=== PATIENT | female | born 1990 | race African-American/Black ===

== ENCOUNTER 2016-10-03 12:27 | Emergency (ER) | payer MEDICAID ==
[~2016-10-03] VITALS: Ht 165.1 cm; Wt 72.6 kg
[2016-10-03] MEDS ORDERED: Ketorolac 30mg Inj IV ONE (12:45)
[2016-10-03] MEDS ORDERED: Meclizine 25mg tab ORAL ONE (12:45)
--- NOTE | 2016-10-03 12:49 | Emergency Room Report ---
History of Present Illness General Chief Complaint: General Complaint Source: Patient, EMS Present Illness HPI Patient presents with complaints of vertigo, dizziness and nausea with associated diarrhea. This started approximately 8 AM this morning and persisted with significant vertigo, 4 episodes of watery diarrhea, some abdominal cramping and nausea without vomiting. She has a history of migraines as well as vertigo. She is generally cared for by [facility]. She called an ambulance when she felt very dizzy during the diarrheal episodes. And was brought her to the hospital without any difficulties in with stable vitals. Patient denies . Patient states that moving her head causes vertigo to increase and worsen, worse with movement of her head to the right. She denies drugs and/or alcohol use. She is a single mother with 3 children who accompanied her to the emergency department. She also has a history of migraines for which she takes amitriptyline, Toradol, and a history of vertigo for which he takes meclizine. She tried taking meclizine once this morning but states it did not improve her symptoms significantly. Also has a history of some urinary tract infections but denies dysuria or frequency at this time. Allergies: Coded Allergies: MEPERIDINE (Unverified Allergy, Unknown, 10/03/16) Patient History Past Medical History: see triage record Past Surgical History: none Pertinent Family History: none Social History: Denies: alcohol use, drug use, smoking Now: No Immunizations: UTD Reviewed Nursing Documentation: PMH: Agreed Nursing Documentation-[facility] Past Medical History: No History, Except For Hx Neurological Problems: No - MYGARINE Review of Systems Gastrointestinal: Reports: diarrhea, nausea, Denies: constipation, hematemesis , vomiting Neurological: Reports: dizziness, headache All Other Systems: negative except mentioned in HPI Physical Exam Vital Signs Date Time Temp Pulse Resp B/P Pulse Ox O2 Delivery O2 Flow Rate FiO2 10/03/16 12:21 98.6 69 20 107/65 100 Room Air Sp02 EP Interpretation: reviewed, normal General Appearance: alert, non-toxic, mild distress, other - appears somewhat overwhelmed, tired Head: atraumatic Eyes: bilateral eye normal inspection ENT: normal ENT inspection, hearing grossly normal, normal voice Neck: normal inspection, full range of motion, supple, no bony tend Respiratory: normal inspection, lungs clear, normal breath sounds, no respiratory distress, no retraction, no wheezing Cardiovascular #1: regular rate, rhythm, no edema Gastrointestinal: normal inspection, normal bowel sounds, non tender, soft, no guarding, no hernia Genitourinary: no CVA tenderness Musculoskeletal: normal inspection, back normal, normal range of motion Neurologic: alert, oriented x3, responsive, speech normal, nystagmus - with movement of the head to the right Psychiatric: normal inspection, judgement/insight normal, mood/affect normal Skin: normal inspection, normal color, no rash Medical Decision Making Diagnostic Impression: Primary Impression: Vertigo Additional Impressions: Dizziness Headache Diarrhea Nausea ER Course 26-year-old female with a history of migraines, vertigo presenting with dizziness, vertigo and diarrhea for which she did not find relief with meclizine. Her exam is somewhat suggestive of a vertiginous attack. No abdominal discomfort, no breathing difficulties or recent sick contacts from the children or others. We'll start with IV fluids, blood tests, urinalysis, test as well as meclizine, Toradol and Compazine for her migraine. Based on response to treatment should be able to determine final disposition. after initial treatment the patient appears quite well. She's been in today without difficulty, she received fluids, pain medication as well as antiemetic. Patient's labs initially appear well to me though there are still some pending. He'll be signed out to my oncoming physician , for final review prior to discharge. At this time I believe her primary diagnosis would be dizziness, vertigo with may be a viral diarrhea component. final read for urinalysis pending to be signed out to oncoming doctor Laboratory Tests Test 10/03/16 13:20 10/03/16 13:50 Sodium Level 136 mEQ/L (135-145) Potassium Level 3.9 mEQ/L (3.4-4.9) Chloride Level 98 mEQ/L (98-107) Carbon Dioxide Level 24 mEQ/L (20-30) Anion Gap 14 (5-15) Blood Urea Nitrogen 6 mg/dL (7-23) L Creatinine 0.7 mg/dL (0.5-0.9) Estimat Glomerular Filtration Rate > 60 mL/min (>60) Glucose Level 89 mg/dL (74-106) Calcium Level 9.5 mg/dL (8.6-10.2) White Blood Count 7.3 K/UL (4.8-10.8) Red Blood Count 4.88 M/UL (4.20-5.40) Hemoglobin 10.1 G/DL (12.0-16.0) L Hematocrit 33.8 % (37.0-47.0) L Mean Corpuscular Volume 69 FL (80-99) L Mean Corpuscular Hemoglobin 20.6 PG (27.0-31.0) L Mean Corpuscular Hemoglobin Concent 29.8 G/DL (32.0-36.0) L Red Cell Distribution Width 16.9 % (11.6-14.8) H Platelet Count 271 K/UL (150-450) Mean Platelet Volume 9.0 FL (6.5-10.1) Neutrophils (%) (Auto) 63.7 % (45.0-75.0) Lymphocytes (%) (Auto) 27.5 % (20.0-45.0) Monocytes (%) (Auto) 6.9 % (1.0-10.0) Eosinophils (%) (Auto) 1.0 % (0.0-3.0) Basophils (%) (Auto) 0.9 % (0.0-2.0) Urine Color Pale yellow Urine Appearance Clear Urine pH 6.5 (4.5-8.0) Urine Specific [place] 1.010 (1.005-1.035) Urine Protein Negative (NEGATIVE) Urine Glucose (UA) Negative (NEGATIVE) Urine Ketones Negative (NEGATIVE) Urine Occult Blood Negative (NEGATIVE) Urine Nitrite Negative (NEGATIVE) Urine Bilirubin Negative (NEGATIVE) Urine Urobilinogen Normal MG/DL (0.0-1.0) Urine Leukocyte Esterase 2+ (NEGATIVE) H Urine RBC Pending Urine WBC Pending Urine Squamous Epithelial Cells Pending Urine Bacteria Pending Urine HCG, Qualitative Pending Reevaluation Time: 14:24 Last Vital Signs Date Time Temp Pulse Resp B/P Pulse Ox O2 Delivery O2 Flow Rate FiO2 10/03/16 12:21 98.6 69 20 107/65 100 Room Air Status: improved Disposition: HOME, SELF-CARE Condition: Improved Scripts Ondansetron (Zofran) 4 Mg Tablet 4 MG ORAL Q6H Y for Nausea & Vomiting, #30 TAB 0 Refills Prov: Israel Arechiga MD 10/03/16 [facility] constantino MD Oct 03, 2016 12:49
[2016-10-03 13:41] VITALS: BP 107/65
[2016-10-03 14:05] LABS: ANION GAP 14 (5-15); CALCIUM 9.5 mg/dL (8.6-10.2); CARBON DIOXIDE 24 mEQ/L (20-30); CHLORIDE 98 mEQ/L (98-107); CREATININE 0.7 mg/dL (0.5-0.9); GLOMERULAR FILTRATION RATE > 60 mL/min (>60); HEMOLYSIS 11; POTASSIUM 3.9 mEQ/L (3.4-4.9); SODIUM 136 mEQ/L (135-145)
[2016-10-03 14:12] LABS: APPEARANCE,URINE CLEAR; KETONES,URINE NEGATIVE (NEGATIVE); LEUKOCYTE ESTERASE ,URINE 2+ (NEGATIVE); NITRITE,URINE NEGATIVE (NEGATIVE); PH,URINE 6.5 (4.5-8.0); PROTEIN,URINE NEGATIVE (NEGATIVE); UROBILINOGEN,URINE NORMAL MG/DL (0.0-1.0)
[2016-10-03] MEDS ORDERED: ZOFRAN4 MG ORAL (14:12)
[2016-10-03 14:14] LABS: BASOPHILS % (AUTO) 0.9 % (0.0-2.0); LYMPHOCYTES % (AUTO) 27.5 % (20.0-45.0); MEAN CORPUSCULAR HEMOGLOBIN 20.6 PG (27.0-31.0); MEAN CORPUSCULAR HGB CONC 29.8 G/DL (32.0-36.0); MEAN CORPUSCULAR VOLUME 69 FL (80-99); MONOCYTES % (AUTO) 6.9 % (1.0-10.0); NEUTROPHILS % (AUTO) 63.7 % (45.0-75.0); PLATELET COUNT 271 K/UL (150-450); RED BLOOD COUNT 4.88 M/UL (4.20-5.40); RED CELL DISTRIBUTION WIDTH 16.9 % (11.6-14.8); WHITE BLOOD COUNT 7.3 K/UL (4.8-10.8)
[2016-10-03 14:26] LABS: BACTERIA,URINE OCCASIONAL /HPF; RBC,URINE 0-2 /HPF (0 - 2); SQUAMOUS EPITHELIAL CELL,UR FEW /LPF (NONE/OCC)
[2016-10-03 15:24] VITALS: BP 121/46
== END 2016-10-03 14:30 | disposition home or self-care (01) ==
LOC: EDBD 12:27 → EMR 12:53
DX: R42 Dizziness and giddiness (principal); R51 Headache; R11.0 Nausea; R19.7 Diarrhea, unspecified; Z88.5 Allergy status to narcotic agent
CPT/HCPCS: 36415; 80048; 81003; 81025; 85025; 96374; 96375; 99284; J0780; J1885; J2405

== ENCOUNTER 2018-05-31 12:15 | Inpatient (IN) | payer MEDICAID ==
[~2018-05-31] VITALS: Ht 165.1 cm; Wt 68.0 kg
[~2018-05-31 12:15] MED LIST: ZOFRAN4 MG ORAL
[2018-05-31 12:33] VITALS: BP 123/88
[2018-05-31 14:08] LABS: BASOPHILS % (AUTO) 0.9 % (0.0-2.0); EOSINOPHILS % (AUTO) 0.8 % (0.0-3.0); HEMATOCRIT 39.9 % (37.0-47.0); LYMPHOCYTES % (AUTO) 20.7 % (20.0-45.0); MEAN CORPUSCULAR VOLUME 73 FL (80-99); NEUTROPHILS % (AUTO) 71.6 % (45.0-75.0); PLATELET COUNT 262 K/UL (150-450); RED CELL DISTRIBUTION WIDTH 13.1 % (11.6-14.8); WHITE BLOOD COUNT 7.9 K/UL (4.8-10.8)
[2018-05-31 14:09] LABS: APPEARANCE,URINE SLIGHTLY CLOUDY; BILIRUBIN, URINE NEGATIVE (NEGATIVE); COLOR,URINE PALE YELLOW; GLUCOSE, URINE (UA) NEGATIVE (NEGATIVE); KETONES,URINE NEGATIVE (NEGATIVE); LEUKOCYTE ESTERASE ,URINE 3+ (NEGATIVE); NITRITE,URINE NEGATIVE (NEGATIVE); PH,URINE 7 (4.5-8.0); PROTEIN,URINE NEGATIVE (NEGATIVE); UROBILINOGEN,URINE NORMAL MG/DL (0.0-1.0)
[2018-05-31 14:27] LABS: ANION GAP 11 mmol/L (5-15); BLOOD UREA NITROGEN 10 mg/dL (7-18); CALCIUM 9.2 MG/DL (8.5-10.1); CARBON DIOXIDE 22 MMOL/L (21-32); CHLORIDE 103 MMOL/L (98-107); CREATININE 0.7 MG/DL (0.55-1.30); POTASSIUM 3.7 MMOL/L (3.5-5.1); SODIUM 136 MMOL/L (136-145)
[2018-05-31 14:32] VITALS: BP 107/59
[2018-05-31 14:34] LABS: ALANINE AMINOTRANSFERASE 22 U/L (12-78); ALBUMIN 3.8 G/DL (3.4-5.0); ALBUMIN/GLOBULIN RATIO 0.9 (1.0-2.7); ALKALINE PHOSPHATASE 86 U/L (46-116); ASPARTATE AMINO TRANSFERASE 21 U/L (15-37); BILIRUBIN,TOTAL 0.4 MG/DL (0.2-1.0)
[2018-05-31 16:28] VITALS: BP 121/62
--- NOTE | 2018-05-31 16:58 | Diagnostic Imaging Report ---
Indication: Dizziness and vertigo x6 months along with headache Technique: sagittal T1 fast spin echo, axial T1 FLAIR, axial T2 FLAIR, axial T2 FS PROPELLER, axial T2* GRE, axial diffusion weighted images. ADC and exponential ADC maps generated Comparison: none Findings: No abnormal areas of restricted diffusion to suggest acute infarction. No acute hemorrhage or edema. No mass effect nor midline shift. Normal size ventricles and extra axial CSF spaces. Visualized orbits and sinuses are unremarkable. The vascular flow voids are preserved Impression: Negative
[2018-05-31 18:27] VITALS: BP 140/48
--- NOTE | 2018-05-31 19:05 | Emergency Room Report ---
History of Present Illness General Chief Complaint: Dizziness Source: Patient Present Illness HPI 28 YO Female presents to the ED c/o acute worsening of her neurological symptoms. having on-going dizziness that x 4 months. pt. reports began 2 days after receiving chiropractic adjustments in her neck for tx of migraines. pt. reports frequent episodes of dizziness when standing/walking. pt. has had CT imaging done in ED ( [facility]) which was normal. pt. reports that today while driving in car she had acute onset of severe symptoms which are different than what she has had in the past. Pt reported 10/10 in severity dizziness and PHAM. pt. reports palpitations, denies CP, reports Left sided posterior PHAM that radiates down the left side of the neck. pt. denies vertigo denies sensation of the room spinning. denies visual changes. pt. denies recent head trauma. reports She has been rx'd meclizine and Ativan previously with no effect on her symptoms. Denies . Denies cardias hx. reports family hx of heart problems. Pt. describes being so dizzy at home she has been using a walker. Denies weakness. Allergies: Coded Allergies: MEPERIDINE (Unverified Allergy, Unknown, 10/03/16) Patient History Past Medical History: see triage record Past Surgical History: none Last Menstrual Period: April, Now: No Reviewed Nursing Documentation: PMH: Agreed; PSxH: Agreed Nursing Documentation-PM[facility] Past Medical History: No History, Except For Hx Neurological Problems: No - MYGARINE Review of Systems All Other Systems: negative except mentioned in HPI Physical Exam Vital Signs Date Time Temp Pulse Resp B/P (MAP) Pulse Ox O2 Delivery O2 Flow Rate FiO2 05/31/18 12:22 98.1 89 18 123/88 100 Room Air 98.1 Sp02 EP Interpretation: reviewed, normal General Appearance: alert, GCS 15, non-toxic, mild distress Head: normocephalic, atraumatic Eyes: bilateral eye normal inspection, bilateral eye PERRL ENT: hearing grossly normal, normal voice Neck: full range of motion, no meningismus, no bony tend Respiratory: chest non-tender, lungs clear, normal breath sounds, speaking full sentences Cardiovascular #1: regular rate, rhythm Musculoskeletal: back normal, normal range of motion, non-tender Neurologic: alert, oriented x3, responsive, motor strength/tone normal, sensory intact, speech normal, other - pt. has unsteady gait. no nystagmus, symptoms illicited with head turned to the right past 80*. , grossly normal Psychiatric: judgement/insight normal Skin: normal color, no rash, warm/dry, well hydrated Medical Decision Making PA Attestation Dr. kelly is my supervising Physician whom patient management has been discussed with. Diagnostic Impression: Primary Impression: Dizziness of unknown cause Additional Impressions: Unsteady gait Headache Qualified Codes: R51 - Headache ER Course 28 YO Female presents to the ED c/o acute worsening of her neurological symptoms. having on-going dizziness x 4 months. pt. reports began 2 days after receiving chiropractic adjustments in her neck for tx of migraines. pt. reports frequent episodes of dizziness when standing/walking. pt. has had CT imaging done in ED ( [facility]) which was normal. pt. reports that today while driving in car she had acute onset of severe symptoms which are different than what she has had in the past. pt. reports palpitations, denies CP, reports Left sided posterior PHAM that radiates down the left side of the neck. pt. denies vertigo denies sensation of the room spinning. denies visual changes. pt. denies recent head trauma. reports She has been rx'd meclizine and Ativan previously with no effect on her symptoms. Denies . Denies cardias hx. reports family hx of heart problems. Pt. describes being so dizzy at home she has been using a walker. Denies weakness. Ddx considered but are not limited to Mnire's, BPPV, labrinitis, cerebellar stroke, hypovolemia, cardiac cause. Vital signs: are WNL, pt. is afebrile H&PE are most consistent with : Dizziness and unsteady gait. ORDERS - Ortho static VS: minimally positive HR increased by exactly 10 bpms -CT head no contrast- negative for ICH, EDEMA, or mass -CMP: unremarkable -UA: Most consistent with contamination -Urine Hcg: Negative - EK BPM NSR no acute ST changes, reviewed by Dr. Rowell ED INTERVENTIONS: - IV Fluids 1000cc NS - Fioricet DISPOSITION: at this time pt. will be admitted to Dr. Celaya for persistent dizziness and unsteady gait. Dr. Celaya agreed to admit the pt. and to continue pt. care management. Labs Test 05/31/18 13:06 05/31/18 13:35 Urine Opiates Screen Negative (NEGATIVE) Urine Barbiturates Screen Negative (NEGATIVE) Phencyclidine (PCP) Screen Negative (NEGATIVE) Urine Amphetamines Screen Negative (NEGATIVE) Urine Benzodiazepines Screen Negative (NEGATIVE) Urine Cocaine Screen Negative (NEGATIVE) Urine Marijuana (THC) Screen Negative (NEGATIVE) White Blood Count 7.9 K/UL (4.8-10.8) Red Blood Count 5.50 M/UL (4.20-5.40) Hemoglobin 12.0 G/DL (12.0-16.0) Hematocrit 39.9 % (37.0-47.0) Mean Corpuscular Volume 73 FL (80-99) Mean Corpuscular Hemoglobin 21.8 PG (27.0-31.0) Mean Corpuscular Hemoglobin Concent 30.1 G/DL (32.0-36.0) Red Cell Distribution Width 13.1 % (11.6-14.8) Platelet Count 262 K/UL (150-450) Mean Platelet Volume 9.3 FL (6.5-10.1) Neutrophils (%) (Auto) 71.6 % (45.0-75.0) Lymphocytes (%) (Auto) 20.7 % (20.0-45.0) Monocytes (%) (Auto) 6.0 % (1.0-10.0) Eosinophils (%) (Auto) 0.8 % (0.0-3.0) Basophils (%) (Auto) 0.9 % (0.0-2.0) Urine Color Pale yellow Urine Appearance Slightly cloudy Urine pH 7 (4.5-8.0) Urine Specific [place] 1.015 (1.005-1.035) Urine Protein Negative (NEGATIVE) Urine Glucose (UA) Negative (NEGATIVE) Urine Ketones Negative (NEGATIVE) Urine Blood Negative (NEGATIVE) Urine Nitrite Negative (NEGATIVE) Urine Bilirubin Negative (NEGATIVE) Urine Urobilinogen Normal MG/DL (0.0-1.0) Urine Leukocyte Esterase 3+ (NEGATIVE) Urine RBC 0-2 /HPF (0 - 2) Urine WBC 5-10 /HPF (0 - 2) Urine Squamous Epithelial Cells Moderate /LPF (NONE/OCC) Urine Bacteria Few /HPF (NONE) Urine HCG, Qualitative Negative (NEGATIVE) Sodium Level 136 MMOL/L (136-145) Potassium Level 3.7 MMOL/L (3.5-5.1) Chloride Level 103 MMOL/L (98-107) Carbon Dioxide Level 22 MMOL/L (21-32) Anion Gap 11 mmol/L (5-15) Blood Urea Nitrogen 10 mg/dL (7-18) Creatinine 0.7 MG/DL (0.55-1.30) Estimat Glomerular Filtration Rate > 60 mL/min (>60) Glucose Level 76 MG/DL (74-106) Calcium Level 9.2 MG/DL (8.5-10.1) Total Bilirubin 0.4 MG/DL (0.2-1.0) Aspartate Amino Transf (AST/SGOT) 21 U/L (15-37) Alanine Aminotransferase (ALT/SGPT) 22 U/L (12-78) Alkaline Phosphatase 86 U/L (46-116) Total Protein 8.2 G/DL (6.4-8.2) Albumin 3.8 G/DL (3.4-5.0) Globulin 4.4 g/dL Albumin/Globulin Ratio 0.9 (1.0-2.7) EKG Diagnostic Results EP Interpretation: Dr. Rowell Rate: normal - 75 bpm Rhythm: NSR ST Segments: no acute changes ASA given to the pt in ED: No PA Scribe Text This Interpretation was scribed by FELICE Butterfield. Last Vital Signs Date Time Temp Pulse Resp B/P (MAP) Pulse Ox O2 Delivery O2 Flow Rate FiO2 05/31/18 18:30 98.5 05/31/18 18:27 72 19 140/48 95 Room Air Disposition: ADMITTED INPATIENT Condition: Serious Referrals: [facility],REFERRING (PCP) Yasmin Butterfield May 31, 2018 19:05
[2018-05-31] MEDS ORDERED: LORazepam Inj 2mg/ml 1ml IV PRN (20:30)
[2018-05-31] MEDS ORDERED: Mylanta II UD 30ml ORAL PRN (20:30)
[2018-05-31] MEDS ORDERED: Morphine Sulfate 2mg/ml Inj IVP PRN (20:30)
[2018-05-31] MEDS ORDERED: Miralax 17gm pkt ORAL PRN (20:30)
[2018-05-31] MEDS ORDERED: Zolpidem 5mg tab ORAL PRN (20:30)
[2018-05-31 21:05] VITALS: BP 107/62
[2018-05-31 23:50] VITALS: BP 131/56
[2018-06-01 04:00] VITALS: BP 100/56
[2018-06-01] MEDS ORDERED: Meclizine 25mg tab ORAL PRN (05:00)
[2018-06-01] MEDS: Meclizine 25mg tab ORAL PRN (05:20)
[2018-06-01 07:19] LABS: BASOPHILS % (AUTO) 0.7 % (0.0-2.0); EOSINOPHILS % (AUTO) 1.3 % (0.0-3.0); HEMATOCRIT 36.4 % (37.0-47.0); HEMOGLOBIN 11.5 G/DL (12.0-16.0); LYMPHOCYTES % (AUTO) 32.5 % (20.0-45.0); MEAN CORPUSCULAR VOLUME 73 FL (80-99); MONOCYTES % (AUTO) 7.3 % (1.0-10.0); NEUTROPHILS % (AUTO) 58.2 % (45.0-75.0); PLATELET COUNT 254 K/UL (150-450); RED BLOOD COUNT 5.01 M/UL (4.20-5.40); RED CELL DISTRIBUTION WIDTH 13.3 % (11.6-14.8); WHITE BLOOD COUNT 5.5 K/UL (4.8-10.8)
[2018-06-01 07:49] LABS: ALANINE AMINOTRANSFERASE 22 U/L (12-78); ALBUMIN 3.3 G/DL (3.4-5.0); ALBUMIN/GLOBULIN RATIO 0.8 (1.0-2.7); ALKALINE PHOSPHATASE 80 U/L (46-116); ASPARTATE AMINO TRANSFERASE 16 U/L (15-37); BILIRUBIN,TOTAL 0.3 MG/DL (0.2-1.0); BLOOD UREA NITROGEN 9 mg/dL (7-18); CALCIUM 8.8 MG/DL (8.5-10.1); CHLORIDE 105 MMOL/L (98-107); CHOLESTEROL 194 MG/DL (< 200); CREATININE 0.8 MG/DL (0.55-1.30); HDL CHOLESTEROL 37 MG/DL (40-60); POTASSIUM 4.1 MMOL/L (3.5-5.1); SODIUM 139 MMOL/L (136-145); TRIGLYCERIDES 71 MG/DL (30-150)
[2018-06-01 08:00] VITALS: BP 112/65
[2018-06-01 10:01] LABS: ANION GAP 11 mmol/L (5-15); CARBON DIOXIDE 23 MMOL/L (21-32)
--- NOTE | 2018-06-01 11:00 | Cardiac Electrophysiology PN ---
Subjective Subjective [id number] Objective Last 24 Hour Vital Signs Date Time Temp Pulse Resp B/P (MAP) Pulse Ox O2 Delivery O2 Flow Rate FiO2 06/01/18 09:00 Room Air 06/01/18 08:00 97.7 73 18 112/65 (81) 96 97.7 06/01/18 04:00 97.7 66 18 100/56 (71) 96 97.7 05/31/18 23:50 97.9 61 18 131/56 (81) 96 97.9 05/31/18 21:38 Room Air 05/31/18 21:05 98.0 65 19 107/62 95 Room Air 98.0 05/31/18 21:05 36.98975 65 19 107/62 95 Room Air 208.4 05/31/18 19:00 98.5 05/31/18 18:30 98.5 05/31/18 18:27 98.5 72 19 140/48 95 Room Air 98.5 05/31/18 16:28 98.5 81 19 121/62 98 Room Air 98.5 05/31/18 14:32 98.5 76 19 107/59 100 Room Air 98.5 05/31/18 14:32 98.1 76 20 107/59 100 Room Air 98.1 05/31/18 12:33 98.1 89 18 123/88 100 Room Air 98.1 05/31/18 12:22 98.1 89 18 123/88 100 Room Air 98.1 Intake and Output 05/31/18 06/01/18 19:00 07:00 Intake Total 1000 ml 300 ml Balance 1000 ml 300 ml Intake Oral 300 ml IV Total 1000 ml # Voids 1 1 Laboratory Tests Test 05/31/18 13:06 05/31/18 13:35 06/01/18 06:10 Urine Opiates Screen Negative (NEGATIVE) Urine Barbiturates Screen Negative (NEGATIVE) Phencyclidine (PCP) Screen Negative (NEGATIVE) Urine Amphetamines Screen Negative (NEGATIVE) Urine Benzodiazepines Screen Negative (NEGATIVE) Urine Cocaine Screen Negative (NEGATIVE) Urine Marijuana (THC) Screen Negative (NEGATIVE) White Blood Count 7.9 K/UL (4.8-10.8) 5.5 K/UL (4.8-10.8) Red Blood Count 5.50 M/UL (4.20-5.40) H 5.01 M/UL (4.20-5.40) Hemoglobin 12.0 G/DL (12.0-16.0) 11.5 G/DL (12.0-16.0) L Hematocrit 39.9 % (37.0-47.0) 36.4 % (37.0-47.0) L Mean Corpuscular Volume 73 FL (80-99) L 73 FL (80-99) L Mean Corpuscular Hemoglobin 21.8 PG (27.0-31.0) L 22.9 PG (27.0-31.0) L Mean Corpuscular Hemoglobin Concent 30.1 G/DL (32.0-36.0) L 31.5 G/DL (32.0-36.0) L Red Cell Distribution Width 13.1 % (11.6-14.8) 13.3 % (11.6-14.8) Platelet Count 262 K/UL (150-450) 254 K/UL (150-450) Mean Platelet Volume 9.3 FL (6.5-10.1) 9.2 FL (6.5-10.1) Neutrophils (%) (Auto) 71.6 % (45.0-75.0) 58.2 % (45.0-75.0) Lymphocytes (%) (Auto) 20.7 % (20.0-45.0) 32.5 % (20.0-45.0) Monocytes (%) (Auto) 6.0 % (1.0-10.0) 7.3 % (1.0-10.0) Eosinophils (%) (Auto) 0.8 % (0.0-3.0) 1.3 % (0.0-3.0) Basophils (%) (Auto) 0.9 % (0.0-2.0) 0.7 % (0.0-2.0) Urine Color Pale yellow Urine Appearance Slightly cloudy Urine pH 7 (4.5-8.0) Urine Specific [place] 1.015 (1.005-1.035) Urine Protein Negative (NEGATIVE) Urine Glucose (UA) Negative (NEGATIVE) Urine Ketones Negative (NEGATIVE) Urine Blood Negative (NEGATIVE) Urine Nitrite Negative (NEGATIVE) Urine Bilirubin Negative (NEGATIVE) Urine Urobilinogen Normal MG/DL (0.0-1.0) Urine Leukocyte Esterase 3+ (NEGATIVE) H Urine RBC 0-2 /HPF (0 - 2) Urine WBC 5-10 /HPF (0 - 2) H Urine Squamous Epithelial Cells Moderate /LPF (NONE/OCC) H Urine Bacteria Few /HPF (NONE) Urine HCG, Qualitative Negative (NEGATIVE) Sodium Level 136 MMOL/L (136-145) 139 MMOL/L (136-145) Potassium Level 3.7 MMOL/L (3.5-5.1) 4.1 MMOL/L (3.5-5.1) Chloride Level 103 MMOL/L (98-107) 105 MMOL/L (98-107) Carbon Dioxide Level 22 MMOL/L (21-32) 23 MMOL/L (21-32) Anion Gap 11 mmol/L (5-15) 11 mmol/L (5-15) Blood Urea Nitrogen 10 mg/dL (7-18) 9 mg/dL (7-18) Creatinine 0.7 MG/DL (0.55-1.30) 0.8 MG/DL (0.55-1.30) Estimat Glomerular Filtration Rate > 60 mL/min (>60) > 60 mL/min (>60) Glucose Level 76 MG/DL (74-106) 101 MG/DL (74-106) Calcium Level 9.2 MG/DL (8.5-10.1) 8.8 MG/DL (8.5-10.1) Total Bilirubin 0.4 MG/DL (0.2-1.0) 0.3 MG/DL (0.2-1.0) Aspartate Amino Transf (AST/SGOT) 21 U/L (15-37) 16 U/L (15-37) Alanine Aminotransferase (ALT/SGPT) 22 U/L (12-78) 22 U/L (12-78) Alkaline Phosphatase 86 U/L (46-116) 80 U/L (46-116) Total Protein 8.2 G/DL (6.4-8.2) 7.4 G/DL (6.4-8.2) Albumin 3.8 G/DL (3.4-5.0) 3.3 G/DL (3.4-5.0) L Globulin 4.4 g/dL 4.1 g/dL Albumin/Globulin Ratio 0.9 (1.0-2.7) L 0.8 (1.0-2.7) L Triglycerides Level 71 MG/DL (30-150) Cholesterol Level 194 MG/DL (< 200) LDL Cholesterol 141 mg/dL (<100) H HDL Cholesterol 37 MG/DL (40-60) L Cholesterol/HDL Ratio 5.2 (3.3-4.4) H Thyroid Stimulating Hormone (TSH) 1.361 uiU/mL (0.358-3.740) Miguel Angel Fischer MD Jun 01, 2018 11:00
[2018-06-01 12:00] VITALS: BP 112/65
--- NOTE | 2018-06-01 13:35 | Consultation ---
History of Present Illness General Date patient seen: Jun 01, 2018 Chief Complaint: Dizziness Present Illness HPI 28 year old female with hx of migraine and dizziness for 4 months underwent multiple testing testing and consultations. She came here to [facility] to find out why she is dizzy for 4 months. Allergies: Coded Allergies: MEPERIDINE (Unverified Allergy, Unknown, 10/03/16) Medication History Scheduled PRN Ondansetron (Zofran), 4 MG ORAL Q6H PRN for Nausea & Vomiting Patient History Healthcare decision maker Resuscitation status Full Code Advanced Directive on File No Past Medical/Surgical History Past Medical/Surgical History: (1) Migraine Review of Systems Constitutional: Reports: no symptoms Eye: Reports: no symptoms ENT: Reports: no symptoms Physical Exam General Appearance: WD/WN, no apparent distress Lines, tubes and drains: peripheral HEENT: normocephalic, atraumatic Neck: non-tender, normal alignment Respiratory/Chest: chest wall non-tender, lungs clear Breasts: no masses Cardiovascular/Chest: normal peripheral pulses Abdomen: normal bowel sounds, non tender Genitourinary/Rectal: normal genital exam Extremities: normal range of motion Last 24 Hour Vital Signs Date Time Temp Pulse Resp B/P (MAP) Pulse Ox O2 Delivery O2 Flow Rate FiO2 06/01/18 12:00 98.1 72 18 112/65 (81) 96 98.1 06/01/18 09:00 Room Air 06/01/18 08:00 97.7 73 18 112/65 (81) 96 97.7 06/01/18 04:00 97.7 66 18 100/56 (71) 96 97.7 05/31/18 23:50 97.9 61 18 131/56 (81) 96 97.9 05/31/18 21:38 Room Air 05/31/18 21:05 98.0 65 19 107/62 95 Room Air 98.0 05/31/18 21:05 36.27790 65 19 107/62 95 Room Air 208.4 05/31/18 19:00 98.5 05/31/18 18:30 98.5 05/31/18 18:27 98.5 72 19 140/48 95 Room Air 98.5 05/31/18 16:28 98.5 81 19 121/62 98 Room Air 98.5 9/12/18 14:32 98.5 76 19 107/59 100 Room Air 98.5 05/31/18 14:32 98.1 76 20 107/59 100 Room Air 98.1 Intake and Output 05/31/18 06/01/18 19:00 07:00 Intake Total 1000 ml 300 ml Balance 1000 ml 300 ml Intake Oral 300 ml IV Total 1000 ml # Voids 1 1 Laboratory Tests Test 05/31/18 13:35 06/01/18 06:10 White Blood Count 7.9 K/UL (4.8-10.8) 5.5 K/UL (4.8-10.8) Red Blood Count 5.50 M/UL (4.20-5.40) H 5.01 M/UL (4.20-5.40) Hemoglobin 12.0 G/DL (12.0-16.0) 11.5 G/DL (12.0-16.0) L Hematocrit 39.9 % (37.0-47.0) 36.4 % (37.0-47.0) L Mean Corpuscular Volume 73 FL (80-99) L 73 FL (80-99) L Mean Corpuscular Hemoglobin 21.8 PG (27.0-31.0) L 22.9 PG (27.0-31.0) L Mean Corpuscular Hemoglobin Concent 30.1 G/DL (32.0-36.0) L 31.5 G/DL (32.0-36.0) L Red Cell Distribution Width 13.1 % (11.6-14.8) 13.3 % (11.6-14.8) Platelet Count 262 K/UL (150-450) 254 K/UL (150-450) Mean Platelet Volume 9.3 FL (6.5-10.1) 9.2 FL (6.5-10.1) Neutrophils (%) (Auto) 71.6 % (45.0-75.0) 58.2 % (45.0-75.0) Lymphocytes (%) (Auto) 20.7 % (20.0-45.0) 32.5 % (20.0-45.0) Monocytes (%) (Auto) 6.0 % (1.0-10.0) 7.3 % (1.0-10.0) Eosinophils (%) (Auto) 0.8 % (0.0-3.0) 1.3 % (0.0-3.0) Basophils (%) (Auto) 0.9 % (0.0-2.0) 0.7 % (0.0-2.0) Urine Color Pale yellow Urine Appearance Slightly cloudy Urine pH 7 (4.5-8.0) Urine Specific [place] 1.015 (1.005-1.035) Urine Protein Negative (NEGATIVE) Urine Glucose (UA) Negative (NEGATIVE) Urine Ketones Negative (NEGATIVE) Urine Blood Negative (NEGATIVE) Urine Nitrite Negative (NEGATIVE) Urine Bilirubin Negative (NEGATIVE) Urine Urobilinogen Normal MG/DL (0.0-1.0) Urine Leukocyte Esterase 3+ (NEGATIVE) H Urine RBC 0-2 /HPF (0 - 2) Urine WBC 5-10 /HPF (0 - 2) H Urine Squamous Epithelial Cells Moderate /LPF (NONE/OCC) H Urine Bacteria Few /HPF (NONE) Urine HCG, Qualitative Negative (NEGATIVE) Sodium Level 136 MMOL/L (136-145) 139 MMOL/L (136-145) Potassium Level 3.7 MMOL/L (3.5-5.1) 4.1 MMOL/L (3.5-5.1) Chloride Level 103 MMOL/L (98-107) 105 MMOL/L (98-107) Carbon Dioxide Level 22 MMOL/L (21-32) 23 MMOL/L (21-32) Anion Gap 11 mmol/L (5-15) 11 mmol/L (5-15) Blood Urea Nitrogen 10 mg/dL (7-18) 9 mg/dL (7-18) Creatinine 0.7 MG/DL (0.55-1.30) 0.8 MG/DL (0.55-1.30) Estimat Glomerular Filtration Rate > 60 mL/min (>60) > 60 mL/min (>60) Glucose Level 76 MG/DL (74-106) 101 MG/DL (74-106) Calcium Level 9.2 MG/DL (8.5-10.1) 8.8 MG/DL (8.5-10.1) Total Bilirubin 0.4 MG/DL (0.2-1.0) 0.3 MG/DL (0.2-1.0) Aspartate Amino Transf (AST/SGOT) 21 U/L (15-37) 16 U/L (15-37) Alanine Aminotransferase (ALT/SGPT) 22 U/L (12-78) 22 U/L (12-78) Alkaline Phosphatase 86 U/L (46-116) 80 U/L (46-116) Total Protein 8.2 G/DL (6.4-8.2) 7.4 G/DL (6.4-8.2) Albumin 3.8 G/DL (3.4-5.0) 3.3 G/DL (3.4-5.0) L Globulin 4.4 g/dL 4.1 g/dL Albumin/Globulin Ratio 0.9 (1.0-2.7) L 0.8 (1.0-2.7) L Triglycerides Level 71 MG/DL (30-150) Cholesterol Level 194 MG/DL (< 200) LDL Cholesterol 141 mg/dL (<100) H HDL Cholesterol 37 MG/DL (40-60) L Cholesterol/HDL Ratio 5.2 (3.3-4.4) H Thyroid Stimulating Hormone (TSH) 1.361 uiU/mL (0.358-3.740) Height (Feet): 5 Height (Inches): 5.00 Weight (Pounds): 150 Medications Current Medications Medications (Trade) Dose Ordered Sig/Paolo Route PRN Reason Start Time Stop Time Status Last Admin Dose Admin Acetaminophen (Tylenol) 650 mg Q4H PRN ORAL fever 05/31/18 20:30 06/30/18 20:29 Al Hydroxide/Mg Hydroxide (Mylanta II) 30 ml Q6H PRN ORAL dyspepsia 05/31/18 20:30 06/30/18 20:29 Dextrose (Dextrose 50%) 25 ml PRN IV Hypoglycemia 05/31/18 20:30 06/30/18 20:29 Dextrose (Dextrose 50%) 50 ml PRN IV hypoglycemia 05/31/18 20:30 06/30/18 20:29 Lorazepam (Ativan 2mg/ml 1ml) 0.5 mg Q4H PRN IV For Anxiety 05/31/18 20:30 06/07/18 20:29 Meclizine HCl (Antivert) 25 mg Q8H PRN ORAL for dizziness 06/01/18 05:15 07/01/18 05:14 06/01/18 05:20 Morphine Sulfate (Morphine Sulfate) 1 mg Q4H PRN IVP For Pain 05/31/18 20:30 06/07/18 20:29 Ondansetron HCl (Zofran) 4 mg Q6H PRN IVP Nausea & Vomiting 05/31/18 20:30 06/30/18 20:29 06/01/18 03:25 Polyethylene Glycol (Miralax) 17 gm HSPRN PRN ORAL Constipation 05/31/18 20:30 06/30/18 20:29 Zolpidem Tartrate (Ambien) 5 mg HSPRN PRN ORAL Insomnia 05/31/18 20:30 06/07/18 20:29 Assessment/Plan Problem List: (1) Migraine ICD Codes: G43.909 - Migraine, unspecified, not intractable, without status migrainosus SNOMED: 06359040 (2) Dizziness of unknown cause ICD Codes: R42 - Dizziness and giddiness SNOMED: 681793106 Assessment/Plan neuro evaluation symptomatic treatment Melquiades Garcia MD Jun 01, 2018 13:35
[2018-06-01 16:00] VITALS: BP 108/70
[2018-06-01 20:00] VITALS: BP 102/53
--- NOTE | 2018-06-01 20:00 | History and Physical Report ---
DATE OF ADMISSION: 05/31/2018 TIME: 12 noon. CONSULTANTS: 1. Melquiades Garcia M.D. 2. Abrahan Ye M.D. 3. Miguel Angel Fischer M.D. CHIEF COMPLAINT: Dizziness and unsteady gait. BRIEF HISTORY: The patient is a 28-year-old female, who lives at home, presents on and off dizziness for 4 weeks and with unsteady gait, getting worse. She said the room actually spinned a little bit and sometimes she gets migraines, which triggers it. The patient came to [facility], diagnosed with the above and admitted to medical floor for further treatment. Currently, calm, in bed. No complaint. No chest pain. No shortness of breath. No nausea, vomiting, or diarrhea. PAST MEDICAL HISTORY: Migraine. PAST SURGICAL HISTORY: None. MEDICATIONS: Meclizine, Tylenol, morphine, MiraLAX, Zofran, and lorazepam. ALLERGIES: Denies. SOCIAL HISTORY: No smoking. No alcohol. No intravenous drug abuse. FAMILY HISTORY: Noncontributory. PHYSICAL EXAMINATION: GENERAL: Calm in bed, oriented x3, no acute distress. VITAL SIGNS: Temperature is 98 degrees, pulse 72, respirations 18, and blood pressure 112/65. CARDIOVASCULAR: No murmur. LUNGS: Distant and clear. ABDOMEN: Bowel sound positive. Nontender. Nondistended. EXTREMITIES: No cyanosis, clubbing, or edema. NEUROLOGIC: Cranial nerves II through XII grossly intact. Deep tendon reflexes 2+. Motor strength 5/5. LABORATORY AND DIAGNOSTIC DATA: Hemoglobin 11.5, otherwise CBC is normal. BMP shows albumin 3.3. Otherwise, BMP is normal. Urinalysis is 3+ leukocyte esterase, otherwise normal. Urine toxicology is negative. ASSESSMENT: 1. Dizziness. 2. Unsteady gait. 3. Weakness. 4. Anemia. 5. Migraine headaches. 6. UTI. PLAN: 1. Continue previous medications. 2. Antibiotic per Infectious Disease. 3. Neurology and Cardiology followup. 4. Pain control. 5. We will continue to follow this patient. Brennan Celaya D.O. DR: BREANN JOB#: [id number] CC:
--- NOTE | 2018-06-01 21:45 | Consultation ---
DATE OF CONSULTATION: 06/01/2018 CARDIOLOGY CONSULTATION CONSULTING PHYSICIAN: Miguel Angel Fischer M.D. REFERRING PHYSICIAN: Brennan Celaya D.O. REASON FOR CONSULTATION: Dizziness. HISTORY OF PRESENT ILLNESS: This is a 28-year-old lady with history of chronic dizziness, who has been on meclizine, has presented to emergency room with worsening of her dizziness symptoms. This has been going on for about four months. The patient also has history of migraine and has been seen in chiropractice. CT imaging in the emergency room at [facility] was normal. While she was driving her car, she had acute onset of dizziness that was different than before, she reports 06/28. The patient underwent MRI of the brain, but was without contrast. Cardiology consultation was obtained for further evaluation and management. It is of note that her EKG shows sinus rhythm nonspecific T-wave abnormality. REVIEW OF SYSTEMS: Negative other than what was mentioned in the history of present illness. PAST MEDICAL HISTORY: Chronic dizziness. FAMILY HISTORY: Noncontributory. SOCIAL HISTORY: She lives at home, does not smoke or drink alcohol. PHYSICAL EXAMINATION: VITAL SIGNS: Blood pressure is 122/78, pulse is 70, respirations 18, and she is afebrile. HEAD AND NECK: Showed no JVD or carotid bruits. LUNGS: Clear. CARDIOVASCULAR: Shows regular S1 and S2 with no gallop or murmur. ABDOMEN: Soft. EXTREMITIES: No pitting edema. LABORATORY AND DIAGNOSTIC DATA: Labs show white count of 5.5, hemoglobin 11.5, hematocrit 36.5, and platelet count is 254,000. Sodium 139, potassium 4.1, BUN of 9, creatinine 0.8, and glucose of 101. LDL is 141. TSH is 1.36. Urine toxicology is negative. ASSESSMENT AND PLAN: Dizziness. We will get an EKG again and get an echocardiogram to evaluate ejection fraction and wall motion abnormality. The patient is already on meclizine. Neurology evaluation is also pending. Thank you very much, Dr. Celaya, for allowing me to participate in the care of this patient. Please do not hesitate to contact me for any questions regarding my evaluation. Miguel Angel Fischer M.D. DR: LE JOB#: [id number] CC:
[2018-06-02] VITALS: BP 107/67
[2018-06-02] MEDS: Meclizine 25mg tab ORAL PRN (03:31)
[2018-06-02 04:00] VITALS: BP 101/62
[2018-06-02] MEDS ORDERED: Meclizine 25mg tab ORAL ONE (06:50)
[2018-06-02 06:52] LABS: BASOPHILS % (AUTO) 1.1 % (0.0-2.0); EOSINOPHILS % (AUTO) 1.4 % (0.0-3.0); HEMATOCRIT 38.4 % (37.0-47.0); HEMOGLOBIN 11.8 G/DL (12.0-16.0); MEAN CORPUSCULAR VOLUME 73 FL (80-99); NEUTROPHILS % (AUTO) 57.6 % (45.0-75.0); PLATELET COUNT 248 K/UL (150-450); RED BLOOD COUNT 5.26 M/UL (4.20-5.40); RED CELL DISTRIBUTION WIDTH 13.2 % (11.6-14.8); WHITE BLOOD COUNT 5.5 K/UL (4.8-10.8)
[2018-06-02 06:54] LABS: ANION GAP 5 mmol/L (5-15); BLOOD UREA NITROGEN 9 mg/dL (7-18); CALCIUM 9.2 MG/DL (8.5-10.1); CARBON DIOXIDE 27 MMOL/L (21-32); CHLORIDE 105 MMOL/L (98-107); CREATININE 0.8 MG/DL (0.55-1.30); POTASSIUM 4.1 MMOL/L (3.5-5.1); SODIUM 137 MMOL/L (136-145)
[2018-06-02 08:00] VITALS: BP 103/48
--- NOTE | 2018-06-02 11:01 | Diagnostic Imaging Report ---
Indication: Bilateral lower cavity pain Technique: Grayscale and Doppler images of the bilateral lower extremity veins Comparison: none Findings: Bilaterally, grayscale and Doppler images demonstrate no evidence of intraluminal thrombus. Normal phasic Doppler waveforms, demonstrating normal augmentation response. Patent bilateral greater saphenous veins. No evidence of valvular insufficiency. Normal compressibility of all deep venous structures Impression: Negative for evidence of lower extremity deep venous thrombosis This agrees with the preliminary interpretation provided overnight by [facility].
[2018-06-02 11:43] VITALS: BP 112/71
--- NOTE | 2018-06-02 12:21 | Cardiac Electrophysiology PN ---
Assessment/Plan Assessment/Plan 1. Dizziness. EKG no acute ST-T changes. Echo pending The patient is already on meclizine. Neurology evaluation is also pending. Subjective Subjective No CP or SOB. Objective Last 24 Hour Vital Signs Date Time Temp Pulse Resp B/P (MAP) Pulse Ox O2 Delivery O2 Flow Rate FiO2 06/02/18 11:43 98.2 58 20 112/71 (85) 98 98.2 06/02/18 09:00 Room Air 06/02/18 08:00 97.9 59 20 103/48 (66) 99 97.9 06/02/18 04:00 97.5 70 18 101/62 (75) 100 97.5 06/02/18 00:00 97.9 90 18 107/67 (80) 99 97.9 06/01/18 21:00 Room Air 06/01/18 20:00 97.9 85 18 102/53 (69) 100 97.9 06/01/18 16:24 87 84 112 06/01/18 16:00 97.7 87 18 108/70 (83) 96 97.7 Intake and Output 06/01/18 06/02/18 19:00 07:00 Intake Total 475 ml 400 ml Balance 475 ml 400 ml Intake Oral 475 ml 400 ml # Voids 4 3 Laboratory Tests Test 06/02/18 05:50 White Blood Count 5.5 K/UL (4.8-10.8) Red Blood Count 5.26 M/UL (4.20-5.40) Hemoglobin 11.8 G/DL (12.0-16.0) L Hematocrit 38.4 % (37.0-47.0) Mean Corpuscular Volume 73 FL (80-99) L Mean Corpuscular Hemoglobin 22.5 PG (27.0-31.0) L Mean Corpuscular Hemoglobin Concent 30.9 G/DL (32.0-36.0) L Red Cell Distribution Width 13.2 % (11.6-14.8) Platelet Count 248 K/UL (150-450) Mean Platelet Volume 9.4 FL (6.5-10.1) Neutrophils (%) (Auto) 57.6 % (45.0-75.0) Lymphocytes (%) (Auto) 33.0 % (20.0-45.0) Monocytes (%) (Auto) 7.0 % (1.0-10.0) Eosinophils (%) (Auto) 1.4 % (0.0-3.0) Basophils (%) (Auto) 1.1 % (0.0-2.0) Sodium Level 137 MMOL/L (136-145) Potassium Level 4.1 MMOL/L (3.5-5.1) Chloride Level 105 MMOL/L (98-107) Carbon Dioxide Level 27 MMOL/L (21-32) Anion Gap 5 mmol/L (5-15) Blood Urea Nitrogen 9 mg/dL (7-18) Creatinine 0.8 MG/DL (0.55-1.30) Estimat Glomerular Filtration Rate > 60 mL/min (>60) Glucose Level 96 MG/DL (74-106) Calcium Level 9.2 MG/DL (8.5-10.1) Objective HEAD AND NECK: Showed no JVD or carotid bruits. LUNGS: Clear. CARDIOVASCULAR: Shows regular S1 and S2 with no gallop or murmur. ABDOMEN: Soft. EXTREMITIES: No pitting edema. Miguel Angel Fischer MD Jun 02, 2018 12:21
--- NOTE | 2018-06-02 13:50 | General Progress Note ---
Assessment/Plan Problem List: (1) Headache ICD Codes: R51 - Headache SNOMED: 84835413, [id number] Qualifiers: Qualified Codes: R51 - Headache (2) Unsteady gait ICD Codes: R26.81 - Unsteadiness on feet SNOMED: 33905859, 271996295 (3) Migraine ICD Codes: G43.909 - Migraine, unspecified, not intractable, without status migrainosus SNOMED: 00973272 (4) Dizziness of unknown cause ICD Codes: R42 - Dizziness and giddiness SNOMED: 089363373 Status: unchanged Assessment/Plan ot pt diet cardio neuro eval dc plan if clear Subjective Constitutional: Reports: weakness Allergies: Coded Allergies: MEPERIDINE (Unverified Allergy, Unknown, 10/03/16) All Systems: reviewed and negative except above Subjective sl dizzy Objective Last 24 Hour Vital Signs Date Time Temp Pulse Resp B/P (MAP) Pulse Ox O2 Delivery O2 Flow Rate FiO2 06/02/18 11:43 98.2 58 20 112/71 (85) 98 98.2 06/02/18 09:00 Room Air 06/02/18 08:00 97.9 59 20 103/48 (66) 99 97.9 06/02/18 04:00 97.5 70 18 101/62 (75) 100 97.5 06/02/18 00:00 97.9 90 18 107/67 (80) 99 97.9 06/01/18 21:00 Room Air 06/01/18 20:00 97.9 85 18 102/53 (69) 100 97.9 06/01/18 16:24 87 84 112 06/01/18 16:00 97.7 87 18 108/70 (83) 96 97.7 Intake and Output 06/01/18 06/02/18 19:00 07:00 Intake Total 475 ml 400 ml Balance 475 ml 400 ml Intake Oral 475 ml 400 ml # Voids 4 3 Laboratory Tests 06/02/18 05:50: White Blood Count 5.5, Red Blood Count 5.26, Hemoglobin 11.8L, Hematocrit 38.4, Mean Corpuscular Volume 73L, Mean Corpuscular Hemoglobin 22.5L, Mean Corpuscular Hemoglobin Concent 30.9L, Red Cell Distribution Width 13.2, Platelet Count 248, Mean Platelet Volume 9.4, Neutrophils (%) (Auto) 57.6, Lymphocytes (%) (Auto) 33.0, Monocytes (%) (Auto) 7.0, Eosinophils (%) (Auto) 1.4, Basophils (%) (Auto) 1.1, Sodium Level 137, Potassium Level 4.1, Chloride Level 105, Carbon Dioxide Level 27, Anion Gap 5, Blood Urea Nitrogen 9, Creatinine 0.8, Estimat Glomerular Filtration Rate > 60, Glucose Level 96, Calcium Level 9.2 Height (Feet): 5 Height (Inches): 5.00 Weight (Pounds): 150 General Appearance: alert EENT: normal ENT inspection Neck: normal alignment Cardiovascular: normal peripheral pulses, normal rate, regular rhythm Respiratory/Chest: chest wall non-tender, lungs clear, normal breath sounds Abdomen: normal bowel sounds, non tender, soft Extremities: normal inspection Edema: no edema noted Arm (L), no edema noted Arm (R), no edema noted Leg (L), no edema noted Leg (R), no edema noted Pedal (L), no edema noted Pedal (R), no edema noted Generalized Neurologic: responsive, motor weakness Skin: normal pigmentation, warm/dry Brennan Celaya DO Jun 02, 2018 13:50
[2018-06-02 15:28] VITALS: BP 102/53
--- NOTE | 2018-06-02 15:36 | Consultation ---
Consult Note Consult Note NEUROLOGY CONSULTATION: Full note dictated #[id number] 28 y/o, RH, BF with ~ 1 year H/O migraines which resolved 6 months ago following a neck adjustment. About 5-6 months ago she started to feel dizzy. The dizziness is only there when she stands or walks and resolves completely when she sits or lays in bed. ON EXAM: Problems with memory and VS function. Normal DTRs except for 1+ ankle jerks. Sways on Romberg. IMPRESSION: 1. Feeling of unsteadiness which only occurs when she stands or walks and gets worse when she closes her eyes. 2. Mild memory loss. 3. Sway on Romberg and decreased ankle jerks. 4. Mild distal sensory dysfunction. REC: W/U for neuropathy. Correct HB to >12 G. F/U with personal neurologist. John Ye M.D., M.S.P.H. JOHN YE Jun 02, 2018 15:36
--- NOTE | 2018-06-02 21:00 | Consultation ---
DATE OF CONSULTATION: 06/02/2018 NEUROLOGY CONSULTATION CONSULTING PHYSICIAN: Abrahan Ye M.D. REQUESTING PHYSICIAN: Brennan Celaya D.O. HISTORY: Ms. Freida Calhoun is a 28-year-old, right-handed, black lady, who does have a history of migrainous headaches that started approximately a year ago and resolved approximately six months ago following the neck adjustments. Then, approximately five to six months ago, she started to feel dizzy. The dizziness is a sensation of unsteadiness and motion from front to back when she stands or walks. It resolves completely when she is sitting all day. The intensity of the sensation varies from time to time. At times, she does not feel it is at all and at other times, it becomes quite bothersome. On the day of admission, it became quite bothersome and as a result of that, she presented to the [facility] Emergency Room and has since been admitted. When she was evaluated in the emergency room, it was noted that she was anemic and in addition, also had a urinary tract infection. She has been treated for those problems and feels a little better now, but she still feels unsteady on her feet whenever she stands or walks. PAST MEDICAL HISTORY: Significant for migrainous headaches that started approximately a year ago and resolved approximately six months ago, and a dizzy feeling for the last five to six months, which actually is a feeling of imbalance. FAMILY HISTORY: Nothing significant. PERSONAL HISTORY: Home: She lives with her mother and three children. 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 Habits: She denies the use of alcohol, tobacco, or illicit drugs. PRESENT MEDICATIONS: Include meclizine, Tylenol, morphine p.r.n., MiraLAX p.r.n., Zofran p.r.n., Ambien p.r.n., lorazepam p.r.n., and Mylanta p.r.n. PHYSICAL EXAMINATION: GENERAL: She is a well-developed, well-nourished, pleasant, but anxious black lady, lying in bed, in no acute distress. VITAL SIGNS: Pulse 58/minute and regular, blood pressure 112/71 mmHg, respirations 20/minute, temperature 98.2 degrees Fahrenheit. HEAD: Normocephalic and atraumatic. EENT examination, benign. NECK: No neck rigidity was observed. EENT: Examination, benign. NEUROLOGIC EXAMINATION: MENTAL STATUS EXAMINATION: She was awake and alert. She was oriented to person, place, and time. She was able to recall 3/3 words immediately, but could only remember 2/3 words in 1 minute and 3 minutes even on the second trial. She was able to remember presidents, Trump and Obama, but could not remember presidents prior to that. Her mathematical skills were impaired. Her visuospatial function was also impaired. SPEECH: She had no dysarthria. LANGUAGE: She had no aphasia. CRANIAL NERVE EXAMINATION: II: The visual francis were intact on confrontation testing. III, IV & : The external ocular movements were full and the pupils 3 mm in diameter, equal, round, regular, and reactive to light. V: She had normal facial sensations, and the temporales, masseters, and pterygoids functioned normally. VII: She had normal facial expressions and no facial asymmetry. VII: She was able to hear well bilaterally and had no nystagmus. IX: The palate moved symmetrically on phonation. X: She had no hoarseness of voice. XI: The sternocleidomastoids and trapezii functioned normally. XII: The tongue was in the midline without any fasciculations or atrophy. MOTOR SYSTEM: The tone was normal in all four extremities. Examination of muscle mass revealed no focal wasting. Examination of power revealed G 5/5 power. SENSORY EXAMINATION: She had intact sensations to pinprick, light touch, and graphesthesia. Position sense was also normal in the fingers and toes bilaterally. COORDINATION: She performed well on [id number] and [id number] testing. On Romberg test, she tended to fall backwards. REFLEXES: 2+ and bilaterally symmetrical at the biceps, triceps, brachioradialis, and knees. 1+ at both ankles. The plantar responses were flexor bilaterally. STANCE: She had a minimally wide-based, but stable stance. GAIT: She walked with a minimally wide-based, but stable gait. She was able to walk well on the heels and toes. DIAGNOSTIC IMPRESSION: 1. Ms. Freida Calhoun is a 28-year-old, right-handed, black lady, who does have a past history of migrainous headaches that started approximately a year ago and resolved 6 months ago following an neck adjustment. Then, about 5-6 months ago, she started to feel dizzy. The dizziness is actually a sensation of imbalance when she stands and walks and it resolves when she sits or lays in bed. 2. On neurological examination, at this time, she does have problems with recent and remote memory, visuospatial function, and higher cognitive function. The elementary neurological examination is essentially benign except for diminished ankle jerks bilaterally and a tendency to sway backwards on Romberg test. 3. Laboratory data obtained thus far revealed that she is anemic with hemoglobin of 11.5 G. Her chemistry panel is essentially benign except for an albumin, which is low at 3.3. Her TSH is normal at 1.36. Urine toxicology screen is negative. Her urinalysis reveals 3+ leukocyte esterase with 0-2 RBCs and 5-10 WBCs per high-power field. 4. An MRI scan of the brain is normal. 5. The patient's history, neurological examination, laboratory data, and imaging studies are most compatible with a feeling of unsteadiness, which occurs only when she stands or walks and gets worse when she closes her eyes due to a mild distal sensory neuropathy. 6. The patient is exhibiting some mild memory problems. The exact etiology for which is unclear at this point in time. RECOMMENDATIONS: 1. The patient was reassured that her neurological examination is relatively benign. 2. She should be worked up thoroughly for treatable causes of neuropathy and mild cognitive problems with in addition to the laboratory tests already done a B12 level, folate level, vitamin D level, RPR, glycohemoglobin, and Westergren sedimentation rate. 3. Her hemoglobin should be corrected to greater than 10 G. 4. She was encouraged to follow up with her personal neurologist in the near future. Thank you for entrusting me with the care of Ms. Calhoun. Please do let me know if I can be of any further help. Abrahan Ye M.D., M.S.P.H. DR: BINTA JOB#: [id number] JENNA
--- NOTE | 2018-06-04 16:04 | Cardiology Report ---
APPROVED REPORT EKG Measurement Heart [id number] IA [id number] Normal sinus rhythm with sinus arrhythmia Nonspecific T wave abnormality Abnormal ECG
--- NOTE | 2018-06-05 08:47 | Cardiology Report ---
APPROVED REPORT EXAM: Two-dimensional and M-mode echocardiogram with Doppler and color Doppler. INDICATION Syncope M-Mode DIMENSIONS IVSd1.1 (0.7-1.1cm)Left Atrium (MM)3.2 (1.6-4.0cm) LVDd4.7 (3.5-5.6cm)Aortic Root2.6 (2.0-3.7cm) PWd0.9 (0.7-1.1cm)Aortic Cusp Exc.1.6 (1.5-2.0cm) LVDs2.9 (2.5-4.0cm) PWs1.2 cm Normal left ventricular chamber size, systolic function and wall motion. Left ventricular ejection fraction estimated to be 60-65 %. No evidence of left ventricular hypertrophy. No evidence of pericardial effusion. All other cardiac chamber sizes are within normal limits. Mild focal aortic valve sclerosis with adequate cusp excursion. Mildly thickened mitral valve leaflets with normal excursion. Mild mitral annulus and aortic root calcification. Normal pulmonic valve structure. Normal tricuspid valve structure. IVC at normal size with physiologic collapse. A color flow and spectral Doppler study was performed and revealed: Trace aortic regurgitation. Trace mitral regurgitation. Mitral inflow indicates normal left ventricular diastolic function. Trace to mild tricuspid regurgitation. Tricuspid systolic velocities suggests peak right ventricular systolic pressure of 35 mmHg, consistent with borderline mild pulmonary hypertension.
--- NOTE | 2018-06-05 08:48 | Discharge Summary ---
Discharge Summary Discharge Summary _ DATE OF ADMISSION: 05/31/2018 DATE OF DISCHARGE: 06/02/2018 REASON FOR ADMISSION: 28 years old female without significant past medical history , presented to emergency department with complaints of migraine and dizziness for the last 4 months. Initial symptoms started 2 days after receiving chiropractic adjustments in her neck for treatment of migraines. Patient reported frequent episodes of dizziness when standing or walking. Patient had CT head i done in ED ( [place]) which was unremarkable. Patient reported that prior to coming to ED , while driving her car, she had acute onset of severe symptoms which were different those she has had in the past. Patient reported 10/10 in severity dizziness and headache. Patient reported palpitations, but denied chest pain and shortness of breath. She reported left sided posterior headache with radiation down to the left side of the neck. Patient denied vertigo, denied sensation of the room spinning. She denied visual changes. She denied recent head trauma/injury. Laboratory workup was unremarkable. Urine toxicology screen was negative. test was negative . Urinalysis revealed pyuria, but only few bacteria. Troponin negative. EKG revealed normal sinus rhythm with sinus arrhythmia. Patient admitted with diagnoses of dizziness of unknown cause, migraine, unsteady gait. CONSULTANTS: shank boner Dr. Fischer neurologist Dr. Bee pulmonary Dr. Garcia [facility] COURSE: Patient admitted. MRI of the brain revealed no acute intracranial pathology. Venous duplex bilateral lower extremity was negative. Orthostatic vital signs revealed decrease in diastolic blood pressure in 20 and increase in heart rate in 30 upon standing. Patient started on the IV hydration. Cardiology and neurology followed. Patient started on meclizine on as needed basis. EKG revealed no acute ST-T changes. No evidence of arrhythmia on telemetry. ECHO revealed Per neurologist, patient's history, neurological examination, laboratory data and imaging studies were most compatible with feeling of unsteadiness , only when she stands or walks. Unsteadiness worse when she closes her eyes due to mild distal sensory neuropathy. Patient also exhibited some mild memory problems. Patient was treated with Fioricet for headache. Headaches resolved. Treatable causes of neuropathy with mild cognitive problems were explored. Noted stable B12 , folate , TSH . RPR and serum protein electrophoresis still pending . ESR with minimal elevation-22. Patient was working with physical and occupational therapists. Fall precautions maintained. Patient noted to have a mild anemia. Hemoglobin and hematocrit were closely monitored, remained stable. Neurologist recommended to keep hemoglobin above 10. Hemoglobin 11.8 hematocrit 38.4 prior to discharge. Dizziness and migraine resolved with symptomatic treatment. Diagnostic workup was negative . Patient was stable for discharge. Outpatient follow-up with her primary care provider and neurologist FINAL DIAGNOSES: Dizziness of unknown cause Mild sensory neuropathy Migraine headaches Anemia DISCHARGE MEDICATIONS: See Medication Reconciliation list. DISCHARGE INSTRUCTIONS: Patient was discharged home . Follow up with primary care provider in one week. I have been assigned to dictate discharge summary for this account. I was not involved in the patient's management. Genet Vargas NP Jun 05, 2018 08:48
== END 2018-06-02 19:30 | disposition home or self-care (01) | DRG 111 ==
LOC: EMR 12:45 → 4E 19:29 → EDBEDREQ 20:38
DX: R42 Dizziness and giddiness (principal); G62.9 Polyneuropathy, unspecified; D64.9 Anemia, unspecified; G43.909 Migraine, unspecified, not intractable, without status migrainosus; N39.0 Urinary tract infection, site not specified; R41.3 Other amnesia; R26.81 Unsteadiness on feet
CPT/HCPCS: 36415; 70551; 80048; 80053; 80061; 80307; 81003; 81025; 82306; 82607; 82746; 83036; 84165; 84443; 85025; 85651; 86592; 93005; 93306; 93970; 96360; 99285; J2405